=== PATIENT | female | born 1990 | race Caucasian/White ===

== ENCOUNTER 2016-12-29 15:11 | Emergency (ER) | payer OTHER ==
[~2016-12-29] VITALS: Ht 160 cm; Wt 110.0 kg
[2016-12-29 15:14] VITALS: Ht 160 cm; Wt 110.0 kg
[2016-12-29] MEDS ORDERED: IBUPROFEN 600 MG TAB PO ONE (16:30)
[2016-12-29] MEDS ORDERED: ALPRAZOLAM 0.25 MG TAB PO ONE (16:30)
--- NOTE | 2016-12-29 16:39 | RADRPT ---
PROCEDURE: XR Right Foot. CLINICAL INDICATION: Trauma. Right foot pain. TECHNIQUE: Three views. Frontal, lateral, and oblique. COMPARISON: None. FINDINGS: There is an acute transverse minimally angulated fracture of the base of the fifth proximal phalanx. There is overlying soft tissue swelling. There is no other fracture and there is no dislocation. The soft tissues are otherwise normal. Articular surfaces are intact. There is no lytic or blastic lesion. There is no radiopaque foreign body. IMPRESSION: 1. Acute transverse minimally angulated fracture of the base of the fifth proximal phalanx. [place] ing soft tissue swelling. 2. Otherwise unremarkable images of the right foot. RPTAT: QQ .Chico Nicole MD, MD Date Time Electronically viewed and signed by .Chico Nicole MD, on 12/29/2016 16:39 .R/
[2016-12-29] MEDS ORDERED: IBUP-1542 PO (16:50)
[2016-12-29 16:59] VITALS: BP 120/74; PULSE 106; RESP 16
--- NOTE | 2016-12-29 16:59 | ERD ---
ER Documentation Chief Complaint Date/Time DATE: 12/29/16 TIME: 16:57 Chief Complaint 8/10 r, foot pain x 1 day hit on bed HPI 26-year-old woman complains of right pinky toe pain after striking the foot against the bed about 1 day ago. She states she hates being in hospitals and has a history of anxiety. She denies suicidal homicidal ideation, she has had no difficulty ambulating, no calf or leg swelling, no paresis or paresthesias. Patient denies domestic violence. ROS All systems reviewed and are negative except as per history of present illness. Medications Home Meds Active Scripts Ibuprofen* (Motrin*) 600 Mg Tab, 600 MG PO Q8 for PAIN AND/OR INFLAMMATION, #30 TAB Prov:GRISEL MORRIS MD 12/29/16 Allergies Allergies: Coded Allergies: No Known Drug Allergies (Verified Allergy, Mild, 12/29/16) PMhx/Soc Anxiety, obesity History of Surgery: Yes (C SECTION , APPY ) Anesthesia Reaction: No Hx Neurological Disorder: No Hx Respiratory Disorders: No Hx Cardiac Disorders: No Hx Psychiatric Problems: Yes (DEPRESSION AND ANXIETY) Hx Miscellaneous Medical Probl: Yes (DM ) Hx Alcohol Use: Yes (ON OCCASSION) Hx Substance Use: No Hx Tobacco Use: No Smoking Status: Never smoker FmHx Family History: No diabetes Physical Exam Vitals Vital Signs Date Time Temp Pulse Resp B/P Pulse Ox O2 Delivery O2 Flow Rate FiO2 12/29/16 16:59 106 16 120/74 100 Room Air 12/29/16 15:14 98.0 138 18 177/100 100 Physical Exam GENERAL: Well-developed, well-nourished, anxious HEENT: Moist mucous membranes, pink conjunctiva, no cervical spine tenderness or step-off deformities, no goiter, no jaundice or icterus, extraocular movements intact without pain. No submandibular induration, and no pharyngeal erythema NEURO: Alert and oriented 3, cranial nerves II through XII intact bilaterally, pupils equal round reactive to light, no focal deficits or facial asymmetry, sensation intact distally Strength 5/5 in upper and lower extremities bilaterally CARDIAC: Tachycardic and regular, no murmurs rubs or gallops LUNGS: Clear bilaterally no wheezing crackles or stridor ABDOMEN: Soft nontender, no guarding, no rigidity, no rebound, no psoas sign no obturator sign. Normoactive bowel sounds SKIN: Warm and dry to touch, no abrasions, contusions, or hematomas, no lacerations, no ecchymosis, no target lesions, and without ulcers EXTREMITIES: Soft tissue swelling and ecchymosis to the base of the right pinky toe, no Homans sign, no popliteal cord sign. Distal pulses equal and bilateral PSYCH: Anxious Results 24 hrs Current Medications Medications (Trade) Dose Ordered Sig/Radha Route PRN Reason Start Time Stop Time Status Last Admin Dose Admin Ibuprofen (Motrin) 600 mg ONCE ONCE PO 12/29/16 16:30 12/29/16 16:31 DC 12/29/16 16:17 Alprazolam (Xanax) 0.5 mg ONCE ONCE PO 12/29/16 16:30 12/29/16 16:31 DC 12/29/16 16:17 Procedures/MDM EKG performed, read by me revealed a sinus tachycardia at 135 bpm, normal axis, narrow QRS complex, no concerning ST elevations or depressions noted. Three-view x-ray of the right foot was performed, read by me there is a transverse fracture to the base of the fifth proximal phalanx of the right foot. No other fracture or dislocation noted. I administered alprazolam 0.5 mg p.o. for her anxiety and ibuprofen 600 mg p.o. for pain and swelling. Toe was ahsan taped for comfort and supportive measures and right foot was placed in the orthopedic boot. Splint Assessment: Neurovascularly intact post splint placement with good fit. Differential diagnoses considered, included but not limited to acute coronary syndrome, pulmonary embolism, aortic dissection, abdominal aortic aneurysm, sepsis, stroke, meningitis, encephalitis, pneumonia, appendicitis, cholecystitis , bowel obstruction, pyelonephritis, nephrolithiasis, cystitis, as well as metabolic, hematologic, and electrolyte abnormalities. As well as abscess, cellulitis, fractures, and dislocations. Patient feels much better at this time, and vital signs are normal, symptoms have improved. I did give strict instructions to return to the ED if symptoms continue or worsen, patient will otherwise follow-up with primary care physician. Patient understood instructions and agreed to plan. Departure Diagnosis: Primary Impression: Fracture of toe of right foot Encounter type: initial encounter Toe: lesser toe Fracture type: closed Phalanx: proximal Fracture alignment: displaced Qualified Code: S92.511A - Closed displaced fracture of proximal phalanx of lesser toe of right foot, initial encounter Additional Impressions: Hypertension Hypertension type: essential hypertension Qualified Code: I10 - Essential hypertension Anxiety Condition: Good Patient Instructions: Finger and Toe Fractures (Broken Finger or Toe) GRISEL MORRIS MD Dec 29, 2016 16:59
== END 2016-12-29 17:14 | disposition home or self-care (01) ==
LOC: E/R 15:11
DX: S92.511A Displaced fracture of proximal phalanx of right lesser toe(s), initial encounter for closed fracture (principal); I10 Essential (primary) hypertension; E11.9 Type 2 diabetes mellitus without complications; W22.8XXA Striking against or struck by other objects, initial encounter; Y92.9 Unspecified place or not applicable
CPT/HCPCS: 73630; 93005; Z7502; Z7610